=== PATIENT | male | born 1995 | race Two or more races ===

== ENCOUNTER 2017-09-02 20:28 | Emergency (ER) | payer BC ==
[~2017-09-02] VITALS: Ht 182.9 cm; Wt 69.4 kg
[2017-09-02 20:32] VITALS: BP 127/79
--- NOTE | 2017-09-02 21:33 | NUR ---
SOFI MEJIA AT BEDSIDE FOR EVAL.
[2017-09-02] MEDS ORDERED: IBUPROFEN 600 MG TABLET PO ONE ×2 (21:49→22:00)
--- NOTE | 2017-09-02 21:54 | NUR ---
RADIOLOGY AT BEDSIDE FOR CXR
== END 2017-09-02 23:05 | disposition home or self-care (01) ==
LOC: ER 20:30
DX: R07.89 Other chest pain (principal); F17.210 Nicotine dependence, cigarettes, uncomplicated
CPT/HCPCS: 71045; 93005; 99284; 99406; A4606; Z7610